=== PATIENT | female | born 1995 | race Caucasian/White ===

== ENCOUNTER 2017-08-14 12:04 | Emergency (ER) | payer OTHER ==
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
[2017-08-14] MEDS ORDERED: CYCLOBENZAPRINE 10 MG TAB PO ONE (13:00)
[2017-08-14 13:58] VITALS: BP 100/77
== END 2017-08-14 13:57 | disposition home or self-care (01) ==
DX: S16.1XXA Strain of muscle, fascia and tendon at neck level, initial encounter (principal); F17.200 Nicotine dependence, unspecified, uncomplicated; V49.49XA Driver injured in collision with other motor vehicles in traffic accident, initial encounter; Y92.410 Unspecified street and highway as the place of occurrence of the external cause; Y99.8 Other external cause status; Y93.89 Activity, other specified